=== PATIENT | male | born 1985 | race Two or more races ===

== ENCOUNTER 2020-09-05 15:06 | Emergency (ER) | payer OTHER ==
[~2020-09-05] VITALS: Ht 188 cm; Wt 78.8 kg
--- NOTE | 2020-09-05 15:30 | NUR ---
PATIENT BIB [facility] WITH CHIEF C/O SEIZURE. PER EMS PATIENT HAS HISTORY OF SEIZURES AND TODAY HAD A SEIZURE THAT PER FAMILY LASTED 3-5 MINUTES, FAMILY REPORTS IT TOOK 30 MINUTES FOR PATIENT TO RETURN TO BASELINE. PATIENT'S BASELINE IS A&OX2. PER EMS [facility] IS 14, PATIENT IS ORIENTED TO PERSON AND PLACE, AND COMPLAINS OF RIGHT ELBOW PAIN. 18 GAUGE IV IN LEFT FA STARTED EN ROUTE. SISTER AT BEDSIDE TRANSLATING FOR PATIENT, NADN, VSS, SEIZURE PRECAUTIONS IN PLACE, CALL LIGHT WITHIN REACH.
[2020-09-05] MEDS ORDERED: ONDANSETRON 2MG/ML, 2ML ONE (16:11)
[2020-09-05] MEDS ORDERED: HYDROmorphone 2 MG/ML, 1ML ONE (16:11)
--- NOTE | 2020-09-05 16:20 | NUR ---
PATIENT MEDICATED PER [facility], XRAY AT BEDSIDE.
[2020-09-05] MEDS ORDERED: PROPOFOL 10 MG/ML, 20ML ONE (16:28)
[2020-09-05] MEDS ORDERED: HYDROmorphone 1 MG/ML, 1ML INJ IVPush PRN (16:30)
[2020-09-05] MEDS ORDERED: SODIUM CHLORIDE FLUSH 10ML SYR IVF ONE (16:30)
[2020-09-05] MEDS ORDERED: ONDANSETRON 2MG/ML, 2ML IVPush ONE (16:30)
[2020-09-05 17:53] VITALS: BP 118/73
--- NOTE | 2020-09-05 18:08 | NUR ---
Patient and sister given discharge instructions and they have confirmed that they understand the instructions, all questions answered. Patient stable and ambulatory with steady gait from ED with sister.
== END 2020-09-05 18:09 | disposition home or self-care (01) ==
LOC: ED 18:00
DX: S43.004A Unspecified dislocation of right shoulder joint, initial encounter (principal); R56.9 Unspecified convulsions; R55 Syncope and collapse; X58.XXXA Exposure to other specified factors, initial encounter; Y93.89 Activity, other specified; Y92.89 Other specified places as the place of occurrence of the external cause; Y99.8 Other external cause status
CPT/HCPCS: 23650; 73020; 73030; 96374; 96375; 99285; J1170; J2405